=== PATIENT | male | born 1970 | race Two or more races ===

== ENCOUNTER 2016-06-25 23:09 | Emergency (ER) | payer MEDICARE, MEDICAID ==
[~2016-06-25] VITALS: Ht 185.4 cm; Wt 79.4 kg
[2016-06-25 23:21] VITALS: BP 125/79
[2016-06-26] MEDS ORDERED: LIDOCAINE /MPF 1% VIAL 5 ML VIAL ONE (00:52)
[2016-06-26] MEDS ORDERED: TDAP [DIPH/PERTUSSIS/TET] 0.5 ML VIAL IM ONE ×2 (00:52→01:00)
[2016-06-26] MEDS ORDERED: CEFTRIAXONE 1 G VIAL ONE (00:52)
[2016-06-26] MEDS ORDERED: CEFTRIAXONE 1 G VIAL IM ONE (01:00)
== END 2016-06-26 01:10 | disposition home or self-care (01) ==
LOC: ER 23:11
DX: S61.431A Puncture wound without foreign body of right hand, initial encounter (principal); W22.8XXA Striking against or struck by other objects, initial encounter; Y93.89 Activity, other specified; Y92.89 Other specified places as the place of occurrence of the external cause; Y99.8 Other external cause status
CPT/HCPCS: 90471; 90715; 96372; 99284; A4606; J0696; J3490; Z7610

== ENCOUNTER 2020-08-03 14:30 | Emergency (ER) | payer OTHER ==
[~2020-08-03] VITALS: Ht 182.9 cm; Wt 69.9 kg
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
--- NOTE | 2020-08-03 14:53 | NUR ---
DR FAROOQ AT BEDSIDE FOR EVAL.
[2020-08-03] MEDS ORDERED: KETOROLAC TROMETHAMINE INJ 30 MG/ML VIAL ONE (14:58)
[2020-08-03] MEDS ORDERED: KETOROLAC TROMETHAMINE INJ 30 MG/ML VIAL IM ONE (15:00)
[2020-08-03] MEDS ORDERED: IBUP-1957 PO (16:14)
--- NOTE | 2020-08-03 16:31 | NUR ---
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
[2020-08-03 16:53] VITALS: BP 99/62
--- NOTE | 2020-08-03 16:53 | NUR ---
PT. VERBALIZED UNDERSTANDING OF AFTERCARE INSTRUCTIONS.Patient discharged to home in stable condition. Written and verbal after care instructions given. Patient verbalizes understanding of instruction.
== END 2020-08-03 16:53 | disposition home or self-care (01) ==
LOC: ER 14:45
DX: S20.212A Contusion of left front wall of thorax, initial encounter (principal); Y00.XXXA Assault by blunt object, initial encounter; Y93.89 Activity, other specified; Y92.89 Other specified places as the place of occurrence of the external cause; Y99.8 Other external cause status
CPT/HCPCS: 71100; 96372; 99283; J1885

== ENCOUNTER 2021-06-16 10:33 | Emergency (ER) | payer OTHER ==
[~2021-06-16] VITALS: Ht 193 cm; Wt 83.9 kg
[~2021-06-16 10:33] MED LIST: IBUP-1957 PO
[2021-06-16 10:51] VITALS: BP 129/75
--- NOTE | 2021-06-16 10:56 | NUR ---
BACK TO [facility] TO WAIT FOR ER BED
--- NOTE | 2021-06-16 13:20 | NUR ---
CALLED TO ROOM-IN, NO ANSWER
--- NOTE | 2021-06-16 14:12 | NUR ---
CALLED TO ROOM IN,NO ANSWER
--- NOTE | 2021-06-16 14:44 | NUR ---
CALLED TO ROOM-IN,NO ANSWER
== END 2021-06-16 14:53 | disposition left against medical advice (07) ==
LOC: ER 10:40
DX: Z53.21 Procedure and treatment not carried out due to patient leaving prior to being seen by health care provider (principal)